=== PATIENT | male | born 1955 | race Two or more races ===

== ENCOUNTER 2024-11-15 14:33 | Emergency (ER) | payer BC, SELFPAY ==
--- NOTE | 2024-11-15 14:36 | EDNOTE_ITS ---
ED Alcohol RME/HPI General Chief Complaint: Alcohol Stated Complaint: DRUNK Time Seen by Provider: 11/15/24 14:36 Arrival date/time: 11/15/24 14:33 69 year old male present to emergency room via EMS for intoxication. pt is speaking in Congolese. no sign of head/neck trauma. SEVERITY: Symptoms are described as being severe with limitations on activities of daily living CONTEXT: The patient is unable to identify any inciting events. DURATION/TIMING: The symptoms started approximately 1 day ASSOCIATED SYMPTOMS: The patient is unable to identify any other associated symptoms. MODIFYING FACTORS: The patient is unable to identify any alleviating or aggravating symptoms. PERTINENT ROS: patient is intoxication without complication REVIEW OF SYSTEMS: See History of Present Illness - with the exception of those mentioned in the history of present illness, all other systems reviewed and reported as negative GENERAL: In general the patient is awake, interactive, in an emergency department gurney. HEAD/EYES/EARS/NOSE/THROAT: normo-cephalic, atraumatic, mucus membranes are moist, anicteric, palpebral conjunctiva is pink, trachea is midline. CARDIOVASCULAR: regular rate and regular rhythm, no murmurs, heart sounds are not distant, strong pulses in all four extremities that are equal and symmetric bilateral upper and lower extremities, normal capillary refill. CHEST/PULMONARY: normal chest rise and fall, good air movement, clear to auscultation bilaterally, normal inspiratory to expiratory ratios without evidence of respiratory distress. NECK: No midline/Paraspinal tenderness, no step off ROM/Strenght intact No Kernig and bruzinski sign. No trauma ABDOMEN: soft, not tender, no masses appreciated BACK: normal range of motion without pain. NEUROLOGICAL: cranio-facial features are symmetric, moves all four extremities equally without obvious limitations or weakness. EXTREMITY: no tenderness to palpation over the long bones or large joints of the bilateral upper and lower extremities, no joint swelling, no joint erythema, no signs of trauma, no unilateral leg swelling and no peripheral edema. SKIN: warm, dry, well-perfused, no jaundice, no rash, no telangiectasias or petechia. PSYCH: intoxication , slurring speach Related Data Allergies Allergy/AdvReac Type Severity Reaction Status Date / Time No Known Allergies Allergy Mild Uncoded 11/19/03 06:03 Course Course Course Narrative: Patient presented with acute alcohol intoxication. No evidence of traumatic injury or medical complication on medical screening exam. Patient observed in the ED for 3 hours after which patient was clinically sober. Patient discharged in the care of family . Information provided on alcohol abuse. Follow up with PCP as needed. Return to ER if alteration of mental status, nausea/vomiting, or other concerns Plan:?? Discharge from ED F/U with PCP PRN Decrease alcohol consumption, binge drinking behavior Return to emergency department urgently if new or worsening symptoms develop. Quality Measures none Orders Category Date Time Status IV [Insert IV] STAT Care 11/15/24 14:52 Active Alcohol, Blood Medical Stat Lab 11/15/24 16:00 Completed CBC Stat Lab 11/15/24 16:00 Completed CMP [Comprehensive Metabolic Panel] Stat Lab 11/15/24 16:00 Completed Drug Screen,Urine Stat Lab 11/15/24 15:35 Completed Lipase Stat Lab 11/15/24 16:00 Completed Folic Acid Inj Med 11/15/24 14:53 Discontinued 1 mg IVP X1 ONE Sodium Chloride 0.9% 1000 ml [Ns] 1,000 ml Med 11/15/24 14:53 Discontinued IV 999 mls/hr Thiamine [Vitamin B-1] Med 11/15/24 14:53 Discontinued 100 mg PO X1 ONE Vital Signs Vital signs: Vital Signs Temperature 98.1 F 11/15/24 14:44 Pulse Rate 85 11/15/24 14:44 Respiratory Rate 20 11/15/24 14:44 Blood Pressure 150/83 H 11/15/24 14:44 Pulse Oximetry (%) 98 11/15/24 14:44 Oxygen Delivery Method Room Air 11/15/24 14:44 Discharge Plan Plan Patient Disposition: HOME (Self Care) Health Concerns: Follow with PMD as directed Return to ED if sx worsen Problem List Clinical Impression: Alcoholic intoxication Patient/Caregiver Discharge Instructions Education Materials: ED Alcohol Intoxication Print Language: Congolese Stand Alone Forms: Karissa Award Info., Patient Portal Info Letter Alcohol Patient data External records reviewed:: [facility] previous records Clinical information provided by:: patient and EMS Social determinants that could affect healthcare access:: none Patient has the following chronic illnesses:: eoth How is presenting disease/condition affected by chronic disease/condition?: exacerbated by Evaluation data The following diagnostics were reviewed and interpreted by me:: lab results Lab and/or radiology exams considered but not ordered:: none Interpretation Summary: + eoth cbc/cmp wnl Medications / Prescriptions Medications or Prescriptions considered but not ordered:: none Medication administrations:: Medication Administration History Discontinued Medications Folic Acid (Folic Acid Inj 1 Mg/0.2 Ml) 1 mg IVP X1 ONE Stop: 11/15/24 14:54 Last Admin: 11/15/24 15:31 Dose: 1 mg Documented By: Sodium Chloride (Ns) 1,000 mls @ 999 mls/hr IV .Q1H1M ONE Stop: 11/15/24 15:53 Last Infusion: 11/15/24 17:03 Dose: Infused Documented By: Admin: 11/15/24 15:32 Dose: 999 mls/hr Documented By: Thiamine HCl (Thiamine 100 Mg Tablet) 100 mg PO X1 ONE Stop: 11/15/24 14:54 Last Admin: 11/15/24 15:31 Dose: 100 mg Documented By: n/a Consultations Consultation(s) initiated? (list below): No Diagnosis Most likely diagnosis given after review of the tests above:: alcohol intoxication Admission Indicated Admission indicated?: not indicated Admission Request Was there a request for admission?: No Disposition Plan Disposition Plan: Discharge Discharge Attestation Discharge Attestation: The patient and all family members were given an opportunity to ask questions and understood the discharge instructions. Discharge instructions specifically effects, indications for sooner follow up or return to the emergency department, and the expected course of current diagnosis. Patient condition: Stable
[2024-11-15 14:44] VITALS: BP 150/83; PULSE 85; RESP 20; TEMP 36.7; O2SAT 98
[2024-11-15 14:57] VITALS: PULSE 82; RESP 20; O2SAT 97; BMI 28.0
[2024-11-15] MEDS: FOLIC ACID INJ 1 MG/0.2 ML IVP (15:31)
[2024-11-15] MEDS: THIAMINE 100 MG TABLET PO (15:31)
[2024-11-15] MEDS: SODIUM CHLORIDE 0.9% 1000 ML 1,000 ML 999 ML IV (15:32)
[2024-11-15 16:04] LABS: Amphetamine/Methamp Scrn,U Negative (Negative); Barbiturate Screen,Urine Negative (Negative); Benzodiazepines Screen,Urine Negative (Negative); Benzoylecgonine Screen, Ur Negative (Negative); Fentanyl Screen,Urine Negative (Negative); Opiate Screen,Urine Negative (Negative); THC Screen,Urine Negative (Negative)
[2024-11-15 16:47] LABS: Basophils % (Auto) 0 % (0-2.5); Eosinophils # (Auto) 0.1 Thou/mm3 (0.0-0.5); Eosinophils % (Auto) 2 % (0-10); Hematocrit 33.5 % (41.0-53.0); Hemoglobin 11.9 g/dL (13.5-16.0); Immature Granulocytes % (Auto) 1 % (0-0); Immature Granulocytes Auto 0.07 Thou/mm3 (0.00-0.00); Lymphocytes # (Auto) 1.5 Thou/mm3 (1.0-4.8); Lymphocytes % (Auto) 30 % (10-50); Mean Corpuscular HGB Conc 35.5 g/dl (31.0-37.0); Mean Corpuscular Hemoglobin 32.1 pg (25.0-35.0); Mean Corpuscular Volume 90 fL (80-100); Monocytes # (Auto) 0.4 Thou/mm3 (0.0-0.8); Monocytes % (Auto) 8 % (0-12); Neutrophils # (Auto) 3.1 Thou/mm3 (1.8-7.7); Neutrophils % (Auto) 59 % (37-80); Nucleated Red Blood Cell % 0 /100 WBC (0); Platelet Count 247 Thou/mm3 (140-440); RDW Standard Deviation 41.6 fL (35.1-43.9); Red Blood Count 3.71 Miln/mm3 (4.50-5.90); White Blood Count 5.2 Thou/mm3 (3.8-10.6)
[2024-11-15 17:08] LABS: Alanine Aminotransferase 61 U/L (10-49); Albumin, Serum 3.9 gm/dL (3.4-4.8); Albumin/Globulin Ratio 1.3 (1.2-2.2); Alcohol, Blood Medical 275.2 mg/dL (0-10.0); Alkaline Phosphatase 85 U/L (46-116); Anion Gap 7 (7-16); Aspartate Amino Transferase 63 U/L (0-34); BUN/Creatinine Ratio 17 Ratio (12-20); Bilirubin,Total 0.3 mg/dL (0.3-1.2); Blood Urea Nitrogen 10 mg/dL (9-23); Calcium 7.9 mg/dL (8.3-10.6); Carbon Dioxide 26.7 mMol/L (20.0-31.0); Chloride 107 mMol/L (98-107); Creatinine (Component) 0.6 mg/dL (0.6-1.3); Estimated Creatinine Clearance 116.9 mL/min (>60); Globulin 3.1 gm/dL (2.3-3.5); Glucose 184 mg/dL (74-106); Lipase 88 U/L (12-53); Osmolality,Calculated 285 (275-295); Sodium 141 mMol/L (136-145); eGFR > 60 See Note
[2024-11-15 17:59] LABS: Potassium 3.8 mMol/L (3.4-5.1)
--- NOTE | 2024-11-15 18:03 | PC.NURSE ---
family contacted to olive picker patient is awake and talking, eating and drinking fluid
[2024-11-15 20:18] VITALS: BP 142/63; PULSE 78; RESP 18; TEMP 37.1; O2SAT 99
== END 2024-11-15 20:18 | disposition home or self-care (01) ==
LOC: SERX 20:43
PROVIDERS: Physician Assistant; Emergency Provider Emergency Medicine
DX: F10.120 Alcohol abuse with intoxication, uncomplicated (principal)
CPT/HCPCS: 36415; 80053; 80307; 80320; 83690; 85025; 96361; 96374; 99284; J3490; J7030; A9270; G0480

== ENCOUNTER 2025-01-30 15:32 | Emergency (ER) | payer BC, SELFPAY ==
[2025-01-30 15:37] VITALS: BMI 29.0
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
[2025-01-30 15:41] VITALS: BP 126/78; PULSE 97; RESP 14; TEMP 37; O2SAT 99
== END 2025-01-30 15:51 ==
LOC: SERX 16:13
PROVIDERS: Emergency Provider Family Medicine; PCP Family Medicine
DX: Z02.89 Encounter for other administrative examinations (principal); Z04.1 Encounter for examination and observation following transport accident
CPT/HCPCS: 99281

== ENCOUNTER 2025-04-21 08:20 | Emergency (ER) | payer MEDICARE, MEDICAID, SELFPAY ==
[2025-04-21] VITALS (9 sets, daily range): BP systolic 100–158; BP diastolic 55–88; PULSE 72–82; RESP 16–20; TEMP 36.6–37; O2SAT 92–98; BMI 30.7; BMI 26.6
--- NOTE | 2025-04-21 08:45 | XR_ITS ---
Examination: CT brain head without contrast. 2-D sagittal coronal reconstructions Date and time of exam:April 21, 2025, 0905 hours INDICATIONS: Head pain today post head injury CTDI: vol (mGy):56 DLP: (mGycm):1237 Technique: Multiple CT axial sections of the brain have been obtained, 5 mm slice thickness. Contrast has not been administered. 2-D sagittal, coronal reconstructions have been obtained Low dose protocols were performed. One or more of the following dose reduction techniques were used; automated exposure control, adjustment of the mA and/or KV according to patient size, use of iterative reconstruction technique. Findings: No significant ventricular enlargement. Intra-axial or extra-axial hemorrhage density is not seen. No mass effect or midline shift Basal cisterns are not remarkable. Fourth ventricle is midline. Cranial vault intact. Impression: Negative for acute hemorrhage, mass effect or midline shift
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
--- NOTE | 2025-04-21 09:23 | PC.CC ---
Patient is pending medical clearance and mental health evaluation upon being medically cleared. It was reported that patient made multiple suicidal statements and is ethol intoxicated.
[2025-04-21 09:28] LABS: Lactate (Lactic Acid) 1.9 mMol/L (0.4-2.0)
[2025-04-21] MEDS: FOLIC ACID 1 MG TABLET PO (09:28)
[2025-04-21] MEDS: MULTIVITAMIN 15 ML UDC PO (09:28)
[2025-04-21] MEDS: RINGERS LACTATED 1000 ML 1,000 ML 999 ML IV (09:29)
[2025-04-21] MEDS: THIAMINE INJ 250 MG in SODIUM CHLORIDE 0.9% 100 ML 205 MG IV (09:29)
[2025-04-21 09:33] LABS: Basophils # (Auto) 0.0 Thou/mm3 (0.0-0.2); Basophils % (Auto) 1 % (0-2.5); Eosinophils # (Auto) 0.2 Thou/mm3 (0.0-0.5); Eosinophils % (Auto) 4 % (0-10); Hematocrit 38.7 % (41.0-53.0); Hemoglobin 13.4 g/dL (13.5-16.0); Immature Granulocytes Auto 0.06 Thou/mm3 (0.00-0.00); Lymphocytes # (Auto) 2.2 Thou/mm3 (1.0-4.8); Lymphocytes % (Auto) 42 % (10-50); Mean Corpuscular HGB Conc 34.6 g/dl (31.0-37.0); Mean Corpuscular Hemoglobin 32.4 pg (25.0-35.0); Mean Corpuscular Volume 94 fL (80-100); Monocytes # (Auto) 0.3 Thou/mm3 (0.0-0.8); Monocytes % (Auto) 6 % (0-12); Neutrophils # (Auto) 2.4 Thou/mm3 (1.8-7.7); Neutrophils % (Auto) 46 % (37-80); Nucleated Red Blood Cell # 0.00 Thou/mm3 (0.00-0.00); Nucleated Red Blood Cell % 0 /100 WBC (0); Platelet Count 302 Thou/mm3 (140-440); RDW Standard Deviation 44.2 fL (35.1-43.9); Red Blood Count 4.14 Miln/mm3 (4.50-5.90); White Blood Count 5.2 Thou/mm3 (3.8-10.6)
[2025-04-21 09:56] LABS: Alanine Aminotransferase 56 U/L (10-49); Albumin, Serum 4.4 gm/dL (3.4-4.8); Albumin/Globulin Ratio 1.5 (1.2-2.2); Alkaline Phosphatase 103 U/L (46-116); Anion Gap 12 (7-16); Aspartate Amino Transferase 48 U/L (0-34); BUN/Creatinine Ratio 14 Ratio (12-20); Bilirubin,Total 0.3 mg/dL (0.3-1.2); Blood Urea Nitrogen 11 mg/dL (9-23); Calcium 9.0 mg/dL (8.3-10.6); Calcium (Corrected) 9.0 mg/dL (8.5-10.1); Carbon Dioxide 25.3 mMol/L (20.0-31.0); Chloride 107 mMol/L (98-107); Creatine Kinase 45 U/L (34-171); Creatinine (Component) 0.8 mg/dL (0.6-1.3); Estimated Creatinine Clearance 80.3 mL/min (>60); Globulin 3.0 gm/dL (2.3-3.5); Glucose 118 mg/dL (74-106); Lipase 219 U/L (12-53); Osmolality,Calculated 287 (275-295); Potassium 4.2 mMol/L (3.4-5.1); Sodium 144 mMol/L (136-145); Total Protein 7.4 gm/dL (5.7-8.2); eGFR > 60 See Note
[2025-04-21 10:51] LABS: Collection Type, Urine Clean Catch; Squamous Epithelial Cell,Urine 0 /hpf (0-5); WBC,Urine 0 /hpf (0-5)
[2025-04-21 11:00] LABS: Amphetamine/Methamp Scrn,U Negative (Negative); Barbiturate Screen,Urine Negative (Negative); Benzodiazepines Screen,Urine Negative (Negative); Benzoylecgonine Screen, Ur Negative (Negative); Fentanyl Screen,Urine Negative (Negative); Opiate Screen,Urine Negative (Negative); THC Screen,Urine Negative (Negative)
[2025-04-21 11:14] LABS: Bilirubin,Urine Negative (Negative); Blood,Urine Negative (Negative); Clarity,Urine Clear (Clear/Hazy); Color,Urine Colorless (Lt Yel-Yel); Glucose, Urine Negative (Negative); Ketones,Urine Negative (Negative); Leukocyte Esterase,Urine Negative (Negative); Nitrite,Urine Negative (Negative); PH,Urine 6.5 (5.0-7.0); Protein,Urine Negative (Neg - Trace); RBC,Urine 1 /hpf (0-3); Specific Gravity,Urine 1.009 (1.001-1.035); Urobilinogen,Urine Negative mg/dL (0.0-1.0)
--- NOTE | 2025-04-21 11:40 | PC.NURSE ---
PATIENT SLEEPING WITH NO COMPLAINT OF PAIN AT THIS TIME. WILL CONTINUE TO MONITOR
--- NOTE | 2025-04-21 15:33 | PC.CC ---
Pt is under home arrest with ankle monitor Patient is a 69 year-old male who presents to the hospital for Anxiety due to calling EMS after finding Pt drunk and passed out. AMFT Sandra made [id number] contact with patient to complete assessment. AMFT introduced self, role, and reason for assessment. disclosed limits of confidentiality as well. Patient appeared alert and oriented to self, place, and situation. At bedside was patient?s mother, Liana Tanner . Patient made appropriate eye contact with this health science writer. Patients mood appeared to be euthymic and remained engaged in assessment, patient had good insight and judgement. No signs of delusions, paranoid or V/h. Patient reports yesterday she had a verbal altercation with her mother and was upset so she graphited her closet and wrote ?suicide band.? Patient reports this is a music band and mother confirmed that she looked it up after the fact and confirmed the information. The mother became upset about the graphite and patient went for a walk with her grandmother, Shivani Olson and when they came back the grandmother fainted which caused the patient to go into a panic and have a panic attack. Patient?s mother reports that is when she called the police. Patient disclosed she has had suicidal ideations with the last time being last week but no plan or intention. Patient reports she does have old self-injurious cuts on her right forearm that she showed this health science writer. These cuts did not appear to be new and patient reports they were old and did it to feel something as she does feel depressed at times. Patient reports she only did this once. At the time of encounter patient is not expressing suicidal and homicidal ideations, visual and auditory hallucinations. Per patient and mother, Liana alexandra has never been placed on a 5585-hold and is not connected and has never been connected to outpatient mental health services. Patient and mother report that patient has been expressing symptoms of depression and has an appointment scheduled with a Psychiatrist, Dr. Muñoz on Tuesday, April 22, [address] [facility] in [place] at 11:00am. ASW inquired what the patient does when she has suicidal ideation or frustration. Patient reports she enjoys drawing, goes for walks with her maternal grandmother, and listening to music. ASW explored with patient and mother is they were willing to safety plan and both reported yes. Patient?s toxicology report was positive for marijuana. Patient had a [facility] screening completed at the time of arrival at the hospital last night by LESLY Wright, the outcome was High Risk. Upon clinical consultation with SILK WEAVER, Jocelyn Zamora patient does not meet criteria for 5150-Hold. Safety plan to be established with mother and patient. ASW, Clare established a safety plan with patient and mother, Liana. Safety plan is that the mother will provide extra supervision to the minor for the next 72 hours. If mother and patient being to feel they need a break the patient will go to maternal grandmother Shivani Olson. Mother is to ensure all medications and sharps are locked and secured not only at home but at grandmother?s home as well. There are no firearms in the home. Mother to ensure the patient attends her outpatient mental health appointment on Friday, April 22, 2025. Mother was advised to bring patient back to the hospital should patient have suicidal ideations or worsening symptoms. ASW provided patient with community resource guide that included crisis and local authority numbers. ASW provided update of discharge plan with safety plan to Dr. Conde, integration project manager Lanise, and bedside LESLY Cordero.
--- NOTE | 2025-04-21 15:56 | PC.CC ---
Patient is a 69-year-old male who presents to the hospital for Anxiety due to calling EMS after finding Pt drunk and passed out. NELY Flores made [id number] contact with patient to complete assessment. AMFT introduced self, role, and reason for assessment. AMFT disclosed limits of confidentiality as well. Patient appeared alert and oriented to self, place, and situation. Patient made appropriate eye contact with this property underwriter. Patients mood appeared to be euthymic and remained engaged in assessment, patient had good insight and judgement. No signs of delusions, paranoid or V/h. Patient reports he has had difficulties with due to Pt being under home arrest with ankle monitor and not being able to leave home. Pt reports depression but denies plan/intent to end life. Patient denies self-injurious behaviors. At the time of encounter patient is not expressing suicidal and homicidal ideations, visual and auditory hallucinations. Per patient he has never been placed on a 5150-hold and is connected per court mandate to outpatient mental health services through [facility]. Patient report symptoms of depression and has next appointment scheduled with [facility] scheduled for next FridayApril 26. AMFT inquired what the patient does when she has suicidal ideation or frustration. Patient reports enjoys going to [employer] and [employer]. AMFT explored with patient and is they were willing to safety plan and both reported yes. Patient?s toxicology report was negative for all drugs. Patient had a [place] screening completed at the time of arrival at the hospital outcome was Low Risk. Upon clinical consultation with [facility], Jocelyn Zamoar patient does not meet criteria for 5150-Hold. Safety plan to be established with and patient. NELY Flores established a safety plan with patient and , Aline. Safety plan is that the will provide extra supervision to the minor for the next 72 hours. If and patient being to feel they need a break will go to children?s house. is to ensure all medications and sharps are locked and secured. There are no firearms in the home. to ensure the patient attends his outpatient mental health appointment on Saturday, April 26, 2025. was advised to bring patient back to the hospital should patient have suicidal ideations or worsening symptoms. [facility] provided patient with community resource guide that included crisis and local authority numbers. [facility] provided update of discharge plan with safety plan to Dr. Conde, sponge fisherman Charlie, and bedside RN Gil.
== END 2025-04-21 16:06 | disposition home or self-care (01) ==
PROVIDERS: Emergency Provider Student in an Organized Health Care Education/Training Program
DX: F10.129 Alcohol abuse with intoxication, unspecified (principal); R45.851 Suicidal ideations; F41.9 Anxiety disorder, unspecified
CPT/HCPCS: 36415; 70450; 80053; 80307; 81001; 82550; 83605; 83690; 85025; 96127; 96361; 96365; 96372; 99284; J3411; J7050; J7120; A9270

== ENCOUNTER 2025-07-14 16:23 | Emergency (ER) | payer MEDICARE, MEDICAID, SELFPAY ==
[2025-07-14 17:03] VITALS: BP 151/82; PULSE 75; RESP 17; TEMP 36.6; O2SAT 99; BMI 29.5
--- NOTE | 2025-07-14 17:14 | XR_ITS ---
Examination: CT brain head without contrast. 2-D sagittal coronal reconstructions Date and time of exam:July 14, 2025, 1724 hrs. Indications: Headache dizziness beginning 4 days ago Comparison: April 21, 2025 CTDI: vol (mGy):54.5 DLP: (mGycm):1172 Technique: Multiple CT axial sections of the brain have been obtained, 5 mm slice thickness. Contrast has not been administered. 2-D sagittal, coronal reconstructions have been obtained Low dose protocols were performed. One or more of the following dose reduction techniques were used; automated exposure control, adjustment of the mA and/or KV according to patient size, use of iterative reconstruction technique. Findings: No significant ventricular enlargement. Mild bilateral chronic subdural hygromas, slightly more prominent compared to April 21, 2025, measuring up to 6 mm in thickness at the level of the right lateral ventricle and 5 mm in thickness at the level of the left lateral ventricle Intra-axial or extra-axial hemorrhage density is not seen. No mass effect or midline shift Basal cisterns are not remarkable. Fourth ventricle is midline. Cranial vault intact. Impression: Negative for acute hemorrhage, mass effect or midline shift Small bilateral chronic subdural hygromas as above, recommend short-term follow-up CT brain scan as clinically warranted to document stability of these chronic subdural hygromas
--- NOTE | 2025-07-14 17:15 | PD.EDRME ---
Rapid Medical Screening Exam RME Arrival date/time: 07/14/25 16:23 69-year-old male with history of alcohol abuse presents to the emergency department today for complaint of headache Chief Complaint: Headache Vital signs: Vital Signs Temperature 97.9 F 07/14/25 17:03 Pulse Rate 75 07/14/25 17:03 Respiratory Rate 17 07/14/25 17:03 Blood Pressure 151/82 H 07/14/25 17:03 Pulse Oximetry (%) 99 07/14/25 17:03 Oxygen Delivery Method Room Air 07/14/25 17:03
[2025-07-14 17:34] LABS: Basophils # (Auto) 0.0 Thou/mm3 (0.0-0.2); Basophils % (Auto) 0 % (0-2.5); Eosinophils # (Auto) 0.1 Thou/mm3 (0.0-0.5); Eosinophils % (Auto) 1 % (0-10); Hematocrit 42.0 % (41.0-53.0); Hemoglobin 14.3 g/dL (13.5-16.0); Immature Granulocytes Auto 0.03 Thou/mm3 (0.00-0.00); Lymphocytes # (Auto) 1.3 Thou/mm3 (1.0-4.8); Lymphocytes % (Auto) 19 % (10-50); Mean Corpuscular HGB Conc 34.0 g/dl (31.0-37.0); Mean Corpuscular Hemoglobin 31.4 pg (25.0-35.0); Mean Corpuscular Volume 92 fL (80-100); Monocytes # (Auto) 0.5 Thou/mm3 (0.0-0.8); Monocytes % (Auto) 8 % (0-12); Neutrophils # (Auto) 4.7 Thou/mm3 (1.8-7.7); Neutrophils % (Auto) 71 % (37-80); Nucleated Red Blood Cell # 0.00 Thou/mm3 (0.00-0.00); Nucleated Red Blood Cell % 0 /100 WBC (0); Platelet Count 339 Thou/mm3 (140-440); RDW Standard Deviation 39.7 fL (35.1-43.9); Red Blood Count 4.56 Miln/mm3 (4.50-5.90); White Blood Count 6.7 Thou/mm3 (3.8-10.6)
[2025-07-14 17:54] LABS: INR 1.0 (0.9-1.3); Partial Thromboplastin Time 27.6 Seconds (22.0-36.0); Prothrombin Time 10.3 Seconds (9.0-12.2)
--- NOTE | 2025-07-14 18:08 | EDNOTE_ITS ---
ED General RME/HPI General Chief complaint: Headache Stated complaint: HEADACHE AND NAUSEA Time Seen by Provider: 07/14/25 18:08 Arrival date/time: 07/14/25 16:23 RME / HPI RME / HPI narrative: 07/14/25 16:23 69-year-old male with history of alcohol abuse presents to the emergency department today for complaint of headache. Patient reports his headache is 8 out of 10 out of pain, located in the central forehead, with no associated bl urry vision, onset today, has never had the symptoms before. Denies any vomiting or nausea at this time. Denies any chest pain. Denies history of stroke or history of migraines. Denies any recent travel. Has been taking Tylenol Celebrex to relieve his symptoms. No other complaints at this time. Related Data Allergies Allergy/AdvReac Type Severity Reaction Status Date / Time No Known Allergies Allergy Unknown Uncoded 07/14/25 16:24 Review of Systems Review of Systems Narrative Review of Systems: Constitutional: No fever, chills, fatigue, weakness, weight loss HEENT: No eye pain, vision loss, ear pain, hearing loss, dysphagia, Cardiovascular: No chest pain, palpitations, edema, pain with walking Respiratory: No cough, shortness of breath, wheezing GI: No NVD, abdominal pain, constipation, blood in stool, loss of appetite, h eartburn Extremities: No presence of pitting edema MSK: No back pain, joint pain, joint swelling Neuro: No dizziness, numbness, weakness, headaches, seizures, tremors, + headache Psych: No anxiety, depression ED Exam Narrative Physical exam: General: AAOx3, NAD, HEENT: Moist mucous membranes, conjunctiva clear, EOMI, PERRLA, Cardiovascular: S1, S2, radial pulses +2 bilat, RRR Pulmonary: CTAB bilat no cough, no wheezing GI: No tenderness to light or deep palpitation, no guarding, rigidity, rebound tenderness or distension Extremities: No presence of trace or pitting edema in lower extremities bilaterally, dorsalis pedis pulses +2 bilaterally Neuro: AAOx3, no focal motor or sensory deficits in the UE or LE bilat Psych: Good judgement, thought and behavior Course Quality Measures none Orders Category Date Time Status CT Screening NOW Care 07/14/25 20:[address] Screening NOW Care 07/14/25 20:44 Active Insert IV NOW Care 07/14/25 20:[address] angio head Stat Exams 07/14/25 20:[address] head/brain wo con Stat Exams 07/14/25 17:14 Completed Alcohol, Blood Medical Stat Lab 07/14/25 17:23 Completed CBC Stat Lab 07/14/25 17:23 Completed Comprehensive Metabolic Panel Stat Lab 07/14/25 17:23 Completed Partial Thromboplastin Time Stat Lab 07/14/25 17:23 Completed Prothrombin Time with INR Stat Lab 07/14/25 17:23 Completed DiphenhydrAMINE INJ [Benadryl Inj] Med 07/14/25 20:44 Discontinued 25 mg IVP X1 ONE Metoclopramide Inj [Reglan Inj] Med 07/14/25 20:44 Discontinued 10 mg IVP X1 ONE Vital Signs Vital signs: Vital Signs Temperature 97.9 F 07/14/25 17:03 Pulse Rate 75 07/14/25 17:03 Respiratory Rate 17 07/14/25 17:03 Blood Pressure 151/82 H 07/14/25 17:03 Pulse Oximetry (%) 99 07/14/25 17:03 Oxygen Delivery Method Room Air 07/14/25 17:03 Discharge Plan Plan Patient Disposition: HOME (Self Care) Patient condition on transfer: Stable Prescriptions/Referrals Referrals: Shivani Gross MD [Primary Care Provider] - In 1 week Problem List Clinical Impression: Migraine Patient/Caregiver Discharge Instructions Discharge Activity: activity as tolerated Education Materials: Headache Migraine Triggers Prevent Print Language: Italian Stand Alone Forms: Karissa Award Info., Patient Portal Info Letter MD Attestation Attestation I, Dr. Durand, have reviewed the history, exam, and assessment of the patient. I have evaluated the patient independently and agree with the plan of care documented by the resident Dr. Talavera. All diagnostic studies were reviewed and discussed. I confirm the diagnosis as documented by the resident. I was present during the Medical Decision Making for this patient. The patient?s plan of care was created between myself and the resident and consistent with our discussion of the patient?s case. MDM Narrative MDM hospital course (for use when minimal MDM required): 2030: H concern foread CT wnl, aneurysm will order CT head angio. Will also give Benadryl and Reglan for migraine cocktail. 2350: Head CT angio reviewed, does not show any large vessel occlusion or aneurysm at this time patient's symptoms are improved with Benadryl and Reglan, patient symptoms likely related to complex migraine. Patient is appropriate for discharge at this time, recommended to follow-up with outpatient. Patient will have to hold metformin for couple of days in addition to avoiding NSAIDs as patient got IV contrast. Medication Administration(s) Medication Administration History Discontinued Medications Diphenhydramine HCl (Diphenhydramine Inj 50 Mg/Ml Vial) 25 mg IVP X1 ONE Stop: 07/14/25 20:45 Last Admin: 07/14/25 20:59 Dose: 25 mg Documented By: DANYA Metoclopramide HCl (Metoclopramide Inj 5 Mg/Ml Vial 2 Ml) 10 mg IVP X1 ONE; Protocol Stop: 07/14/25 20:45 Last Admin: 07/14/25 20:57 Dose: 10 mg Documented By: DANYA Diagnosis Diagnoses ruled out and/or further discussions: Complex migraine, CVA, aneurysm Complex migraine leading diagnosis at this point
[2025-07-14 18:24] LABS: Alanine Aminotransferase 58 U/L (10-49); Albumin, Serum 4.7 gm/dL (3.4-4.8); Albumin/Globulin Ratio 1.4 (1.2-2.2); Alcohol, Blood Medical < 3.0 mg/dL (0-10.0); Alkaline Phosphatase 98 U/L (46-116); Anion Gap 8 (7-16); Aspartate Amino Transferase 51 U/L (0-34); BUN/Creatinine Ratio 14 Ratio (12-20); Bilirubin,Total 0.6 mg/dL (0.3-1.2); Blood Urea Nitrogen 11 mg/dL (9-23); Calcium 9.8 mg/dL (8.3-10.6); Calcium (Corrected) 9.8 mg/dL (8.5-10.1); Carbon Dioxide 27.4 mMol/L (20.0-31.0); Chloride 100 mMol/L (98-107); Creatinine (Component) 0.8 mg/dL (0.6-1.3); Estimated Creatinine Clearance 84.0 mL/min (>60); Globulin 3.3 gm/dL (2.3-3.5); Glucose 151 mg/dL (74-106); Osmolality,Calculated 272 (275-295); Potassium 4.6 mMol/L (3.4-5.1); Sodium 135 mMol/L (136-145); Total Protein 8.0 gm/dL (5.7-8.2); eGFR > 60 See Note
[2025-07-14 19:26] VITALS: BP 176/86; PULSE 65; RESP 18; TEMP 36.6; O2SAT 100
--- NOTE | 2025-07-14 20:44 | XR_ITS ---
Examination: CTA brain head with intravenous contrast CTA carotid with intravenous contrast 2-D sagittal, coronal reconstructions. 3-D reconstructions. Exam date and time: July 14, 2025, 2130 hrs. Indications: Headaches nausea today CTDI: vol (mGy) 41.23 DLP: (mGycm) 438 Technique: Multiple CTA axial brain, head carotid images post intravenous contrast injection 75 cc, Isovue-[id number]. 2-D sagittal, coronal reconstructions. 3-D reconstructions, 3-D post processing including vascular maximum intensity projection images. Low dose protocols were performed. One or more of the following dose reduction techniques were used; automated exposure control, adjustment of the mA and/or KV according to patient size, use of iterative reconstruction technique. Findings: The images are predominantly late venous phase which limits the assessment of the arterial phase Petrous juxtasellar portions internal carotid arteries intact Codominant vertebral arteries intact Intracranial vertebral arteries basilar artery posterior cerebral branches fill with no occlusions Juxtasellar supraclinoid portions internal carotid arteries fill M1 segments middle cerebral arteries middle cerebral artery trifurcation vessels anterior cerebral vessels fill with no large vessel occlusions dissection or aneurysmal dilatation Impression: Limited study No large vessel arterial occlusions Consider brain MRI MRA follow-up pre and postcontrast
[2025-07-14] MEDS: METOCLOPRAMIDE INJ 5 MG/ML VIAL 2 ML 10 MG IVP (20:57)
[2025-07-14 22:40] VITALS: BP 108/59; PULSE 65; RESP 19; TEMP 36.5; O2SAT 98
[2025-07-15 00:08] VITALS: PULSE 70; RESP 16; O2SAT 143
== END 2025-07-15 00:09 | disposition home or self-care (01) ==
PROVIDERS: Nurse Practitioner Primary Care; PCP Obstetrics & Gynecology
DX: G43.909 Migraine, unspecified, not intractable, without status migrainosus (principal)
CPT/HCPCS: 36415; 70450; 70496; 80053; 80320; 85025; 85610; 85730; 96374; 96375; 99284; A4649; J1200; J2765; Q9967; G0480

== ENCOUNTER 2025-08-25 14:09 | Emergency (ER) | payer MEDICARE, MEDICAID, SELFPAY ==
[2025-08-25] VITALS (8 sets, daily range): BP systolic 112–147; BP diastolic 67–87; PULSE 85–110; RESP 16–21; TEMP 36.9–37.1; O2SAT 93–98; BMI 27.4
--- NOTE | 2025-08-25 14:33 | XR_ITS ---
EXAMINATION: AP chest single view TECHNIQUE: AP portable upright chest single view Date and time: August 25, 2025, 1514 hours, comparison December 10, 2022 INDICATIONS: Chest pain coughing shortness of breath today. FINDINGS: Early pneumonia right base obscuring detail right hemidiaphragm Mild prominence left ventricle Moderate osteopenia IMPRESSION: Early pneumonia right base
--- NOTE | 2025-08-25 14:33 | EKG_ITS ---
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: : 1955 Requested By: Silas Bray Order Number: [id number] Reading MD: Silas Bray Measurements Intervals [place] Rate: 94 P: 30 [place]: 129 QRS: -50 QRSD: 151 T: 21 QT: 365 QTc: 458 Interpretive Statements SINUS RHYTHM RIGHT BUNDLE BRANCH BLOCK [120+ ms QRS DURATION, UPRIGHT V1, 40+ ms S IN I/aVL/V4/V5/V6] LEFT ANTERIOR FASCICULAR BLOCK [QRS AXIS <= -45, QR IN I, RS IN II] MODERATE VOLTAGE CRITERIA FOR LVH, CONSIDER NORMAL VARIANT [MEETS CRITERIA IN ONE OF: R(aVL), S(V1), R(V5), R(V5/V6)+S(V1)] Compared to ECG 12/10/2022 19:30:53 Right bundle-branch block now present Left anterior fascicular block now present /store/S0/[id number].pdf
[2025-08-25] MEDS: THIAMINE 100 MG TABLET PO (14:45)
[2025-08-25] MEDS: FOLIC ACID 1 MG TABLET PO (14:45)
[2025-08-25] MEDS: SODIUM CHLORIDE 0.9% 1000 ML 1,000 ML 999 ML IV ×2 (14:45→18:10)
[2025-08-25 14:56] LABS: Basophils # (Auto) 0.0 Thou/mm3 (0.0-0.2); Basophils % (Auto) 0 % (0-2.5); Eosinophils # (Auto) 0.2 Thou/mm3 (0.0-0.5); Eosinophils % (Auto) 3 % (0-10); Hematocrit 39.8 % (41.0-53.0); Hemoglobin 14.0 g/dL (13.5-16.0); Immature Granulocytes Auto 0.05 Thou/mm3 (0.00-0.00); Lymphocytes # (Auto) 2.4 Thou/mm3 (1.0-4.8); Lymphocytes % (Auto) 32 % (10-50); Mean Corpuscular HGB Conc 35.2 g/dl (31.0-37.0); Mean Corpuscular Hemoglobin 31.1 pg (25.0-35.0); Mean Corpuscular Volume 88 fL (80-100); Monocytes # (Auto) 0.5 Thou/mm3 (0.0-0.8); Monocytes % (Auto) 7 % (0-12); Neutrophils # (Auto) 4.3 Thou/mm3 (1.8-7.7); Neutrophils % (Auto) 58 % (37-80); Nucleated Red Blood Cell # 0.00 Thou/mm3 (0.00-0.00); Nucleated Red Blood Cell % 0 /100 WBC (0); Platelet Count 287 Thou/mm3 (140-440); RDW Standard Deviation 39.2 fL (35.1-43.9); Red Blood Count 4.50 Miln/mm3 (4.50-5.90); White Blood Count 7.5 Thou/mm3 (3.8-10.6)
[2025-08-25 15:04] LABS: Collection Type, Urine Clean Catch; Squamous Epithelial Cell,Urine 0 /hpf (0-5)
[2025-08-25 15:11] LABS: Bacteria,Urine Rare; Bilirubin,Urine Negative (Negative); Blood,Urine Negative (Negative); Clarity,Urine Clear (Clear/Hazy); Color,Urine Lt-Yellow (Lt Yel-Yel); Glucose, Urine 3+ (Negative); Hyaline Casts,Urine < 1 /hpf (0-1); Ketones,Urine 1+ (Negative); Leukocyte Esterase,Urine Negative (Negative); Nitrite,Urine Negative (Negative); PH,Urine 6.0 (5.0-7.0); Protein,Urine Negative (Neg - Trace); RBC,Urine 3 /hpf (0-3); Specific Gravity,Urine 1.014 (1.001-1.035); Urobilinogen,Urine Negative mg/dL (0.0-1.0); WBC,Urine < 1 /hpf (0-5)
[2025-08-25 15:11] LABS: INR 1.0 (0.9-1.3); Partial Thromboplastin Time 27.1 Seconds (22.0-36.0); Prothrombin Time 10.2 Seconds (9.0-12.2)
--- NOTE | 2025-08-25 15:11 | EDNOTE_ITS ---
ED Alcohol RME/HPI General Chief Complaint: General Adult/Misc Complain Stated Complaint: INTOXICATED Time Seen by Provider: 08/25/25 14:30 Arrival date/time: 08/25/25 14:09 Limitations: no limitations RME / HPI RME / HPI narrative: 69 year old male presents to the ED BIBA for alcohol intoxication. Per medics, patient was found sitting on the sidewalk. State they noticed an abrasion to the bridge of his nose though patient denied falling or injury. While in the ED, patient complains of feeling very sad and lonely. No other complaints reported. Related Data Allergies Allergy/AdvReac Type Severity Reaction Status Date / Time No Known Allergies Allergy Unverified 08/25/25 14:36 Review of Systems Review of Systems Systems Reviewed: All systems reviewed, normal except as documented Past Medical History Past Medical History NEUROLOGIC: Negative Neurological Disorders CARDIAC: Positive Hypertension RESPIRATORY: Negative Chronic Obstructive Pulmonary Disease (COPD) or Asthma GENITOURINARY: Positive Prostate Cancer ENDOCRINE: Positive Diabetes Mellitus Type 2 HEMATOLOGIC: Negative Sickle Cell Disease OTHER HISTORY: Positive Cancer and Prostate Cancer Surgical History SURGICAL: Negative Endocrine Surgery, Ear Surgery, Abdominal Surgery, Mastectomy or Vasectomy Social History SMOKING STATUS: Current some day smoker ED Exam General Limitations: Present no limitations General appearance: Present alert and appears intoxicated (and smells of alcohol ) Head Head exam: Present normocephalic and other (superficial laceration to the bridge of nose ) Eye Eye exam: Present normal appearance, PERRL and EOMI ENT ENT exam: Present normal exam, normal oropharynx and mucous membranes moist Neck Neck exam: Present normal inspection, full ROM and trachea midline Chest Chest inspection: Present normal inspection and symmetric chest wall rise Respiratory Respiratory exam: Present normal lung sounds bilaterally Cardiovascular Cardiovascular exam: Present regular rate, normal rhythm and normal heart sounds Abdominal Exam Abdominal exam: Present soft and normal bowel sounds Extremities Exam Extremities exam: Present full ROM and other (skin tear to the right hand ) Back Exam Back exam: Present normal inspection and full ROM Neurological Exam Neurological exam: Present alert, oriented X3 and CN II-XII intact Psychiatric Psychiatric exam: Present normal affect and normal mood Skin Skin exam: Present warm, dry, intact and normal color Course Quality Measures none Orders Category Date Time Status Rod Greaser NOW Care 08/25/25 14:33 Completed Continuous Pulse Oximetry NOW Care 08/25/25 14:33 Completed EKG (ED ONLY) *Do not use* NOW Care 08/25/25 14:33 Completed Insert IV NOW Care 08/25/25 14:33 Completed Wound Care [Wound Care] NOW Care 08/25/25 18:34 Completed EKG (ED Only) Stat Exams 08/25/25 14:33 Draft XR chest 1V portable Stat Exams 08/25/25 14:33 Completed Alcohol, Blood Medical Stat Lab 08/25/25 14:38 Completed CBC Stat Lab 08/25/25 14:38 Completed Comprehensive Metabolic Panel Stat Lab 08/25/25 14:38 Completed Partial Thromboplastin Time Stat Lab 08/25/25 14:38 Completed Prothrombin Time with INR Stat Lab 08/25/25 14:38 Completed Troponin I Stat Lab 08/25/25 14:38 Completed Urinalysis Stat Lab 08/25/25 14:59 Completed Bacitracin Oint pkt Med 08/25/25 18:33 Discontinued 1 gm TOP X1 ONE Folic Acid Med 08/25/25 14:32 Discontinued 1 mg PO X1 ONE LORazepam [Ativan] Med 08/25/25 14:35 Discontinued 1 mg PO X1 ONE Sodium Chloride 0.9% 1000 ml [Ns] 1,000 ml Med 08/25/25 14:32 Discontinued IV 999 mls/hr Sodium Chloride 0.9% 1000 ml [Ns] 1,000 ml Med 08/25/25 17:57 Discontinued IV 999 mls/hr TET,DIP/PERT AC (Adult)-Tdap [Boostrix Adult (Tdap) Med 08/25/25 18:33 Discontinued Vacc] 0.5 ml IMI .ONCE ONE Thiamine [Vitamin B-1] Med 08/25/25 14:32 Discontinued 100 mg PO X1 ONE Oxygen Delivery NOW RT 08/25/25 14:33 Completed Vital Signs Vital signs: Vital Signs Temperature 98.5 F 08/25/25 14:10 Pulse Rate 97 08/25/25 14:10 Respiratory Rate 18 08/25/25 14:10 Blood Pressure 137/77 H 08/25/25 14:10 Pulse Oximetry (%) 96 08/25/25 14:10 Oxygen Delivery Method Room Air 08/25/25 14:10 Pulse ox is 96% on room air which is adequate. Discharge Plan Plan Patient Disposition: HOME (Self Care) Prescriptions/Referrals Referrals: Carlos Michaud MD [Primary Care Provider, Family Practice] - In 1 week Problem List Clinical Impression: Alcohol intoxication, Abrasion of right thumb Patient/Caregiver Discharge Instructions Discharge Activity: activity as tolerated Education Materials: ED Abrasions, ED Alcohol Intoxication Additional Instructions: Discharge Instructions from Dr. Richard printed for you: 1. After evaluation, your diagnoses include alcohol intoxication and right thumb skin abrasion. 2. To avoid serious illnesses and injuries (some even fatal), avoid alcohol in the future. 3. Wound care of right thumb skin abrasion as instructed in the attached handout. 4. See a private doctor on 08/26/2025 for recheck. Ask for help to quit alcohol. Ask to review all test results and official radiology reports, to make sure you receive all necessary follow-ups and monitoring. 5. Seek immediate medical care with fever, spreading redness from the right thumb wound, or with any concerns. Instrucciones de denise del Dr. Richard impresas para usted: 1. Despu?s de la evaluaci?n, raul diagn?sticos incluyen intoxicaci?n por alcohol y abrasi?n de la piel del pulgar derecho. 2. Para evitar enfermedades y lesiones graves (algunas incluso mortales), evite el alcohol en el futuro. 3. Cuidado de la herida por abrasi?n de la piel del pulgar derecho seg?n se indica en el folleto adjunto. 4. Consulte a un m?dico privado el 26/08/2025 para haley nueva revisi?n. Pide ayuda para dejar el alcohol. Solicite revisar todos los resultados de las pruebas y los informes radiol?gicos oficiales, para asegurarse de recibir todos los seguimientos y monitoreos necesarios. 5. Busque atenci?n m?dica inmediata si tiene fiebre, enrojecimiento extendido de la herida del pulgar derecho o si tiene alguna inquietud. Print Language: Tajik Stand Alone Forms: Karissa Award Info., Patient Portal Info Letter Alcohol MDM Narrative MDM Narrative: Camila Ralph, am scribing for and in the presence of Dr. Matos. 1800: Patient signed out to Dr. Richard pending reassessment. Patient data External records reviewed:: [facility] previous records and EMS form Clinical information provided by:: patient and EMS Social determinants that could affect healthcare access:: alcohol use Patient has the following chronic illnesses:: Hypertension, diabetes How is presenting disease/condition affected by chronic disease/condition?: uneffected by Evaluation data The following diagnostics were reviewed and interpreted by me:: lab results, radiology exam(s) and EKG tracing(s) (EKG @ 14:45, interpreted by me, sinus rhythm, rate 94, right bundle branch block, left anterior fascicular block, no STEMI. ) Lab and/or radiology exams considered but not ordered:: None Interpretation Summary: Ordering Physician: Silas Matos MD Date of Service: 08/25/25 Procedure(s): XR chest 1V portable Accession Number(s): [id number] cc: Silas Matos MD; Carlos Michaud MD; Seun Horton MD~ EXAMINATION: AP chest single view TECHNIQUE: AP portable upright chest single view Date and time: August 25, 2025, 1514 hours, comparison December 10, 2022 INDICATIONS: Chest pain coughing shortness of breath today. FINDINGS: Early pneumonia right base obscuring detail right hemidiaphragm Mild prominence left ventricle Moderate osteopenia IMPRESSION: Early pneumonia right base Dictated By: Seun Horton MD Signed By: <Electronically signed by Seun Horton MD in OV> 08/25/25 1538 Medications / Prescriptions Medications or Prescriptions considered but not ordered:: None Medication administrations:: Medication Administration History Discontinued Medications Bacitracin (Bacitracin Oint 1 Gm Packet) 1 gm TOP X1 ONE Stop: 08/25/25 18:34 Last Admin: 08/25/25 18:43 Dose: 1 gm Documented By: BY Diphtheria/Tetanus/Acell Pertussis (Diphth,Pertuss(Acell),Tet Vac 0.5 Ml Syr- Adult) 0.5 ml IMi .ONCE ONE Stop: 08/25/25 18:34 Last Admin: 08/25/25 18:42 Dose: 0.5 ml Documented By: BY Folic Acid (Folic Acid 1 Mg Tablet) 1 mg PO X1 ONE Stop: 08/25/25 14:33 Last Admin: 08/25/25 14:45 Dose: 1 mg Documented By: BY Sodium Chloride (Ns) 1,000 mls @ 999 mls/hr IV .Q1H1M ONE Stop: 08/25/25 15:32 Last Infusion: 08/25/25 15:46 Dose: Infused Documented By: Admin: 08/25/25 14:45 Dose: 999 mls/hr Documented By: BY Sodium Chloride (Ns) 1,000 mls @ 999 mls/hr IV .Q1H1M ONE Stop: 08/25/25 18:57 Last Admin: 08/25/25 18:10 Dose: 999 mls/hr Documented By: BY Lorazepam (Lorazepam 0.5 Mg Tablet) 1 mg PO X1 ONE Stop: 08/25/25 14:36 Last Admin: 08/25/25 14:45 Dose: 1 mg Documented By: BY Thiamine HCl (Thiamine 100 Mg Tablet) 100 mg PO X1 ONE Stop: 08/25/25 14:33 Last Admin: 08/25/25 14:45 Dose: 100 mg Documented By: BY See above Consultations Consultation(s) initiated? (list below): No Diagnosis Most likely diagnosis given after review of the tests above:: Alcohol intoxication Admission Indicated Admission indicated?: not indicated Explain why admission is indicated or not indicated:: Pending final disposition. Admission Request Was there a request for admission?: No Disposition Plan Disposition Plan: other (specify) (Signed out to Dr. Richard )
[2025-08-25 15:13] LABS: Alanine Aminotransferase 72 U/L (10-49); Albumin, Serum 4.7 gm/dL (3.4-4.8); Albumin/Globulin Ratio 1.8 (1.2-2.2); Alcohol, Blood Medical 269.8 mg/dL (0-10.0); Alkaline Phosphatase 109 U/L (46-116); Anion Gap 13 (7-16); Aspartate Amino Transferase 57 U/L (0-34); BUN/Creatinine Ratio 16 Ratio (12-20); Bilirubin,Total 0.4 mg/dL (0.3-1.2); Blood Urea Nitrogen 14 mg/dL (9-23); Calcium 9.1 mg/dL (8.3-10.6); Calcium (Corrected) 9.1 mg/dL (8.5-10.1); Carbon Dioxide 23.7 mMol/L (20.0-31.0); Chloride 101 mMol/L (98-107); Creatinine (Component) 0.9 mg/dL (0.6-1.3); Estimated Creatinine Clearance 74.7 mL/min (>60); Globulin 2.6 gm/dL (2.3-3.5); Glucose 234 mg/dL (74-106); Osmolality,Calculated 284 (275-295); Potassium 4.2 mMol/L (3.4-5.1); Sodium 138 mMol/L (136-145); Total Protein 7.3 gm/dL (5.7-8.2); Troponin I < 0.020 ng/mL (0.0-0.045); eGFR > 60 See Note
--- NOTE | 2025-08-25 18:15 | PC.NURSE ---
BROTHER JUAN ALBERTO CALLED FOR DANCE THERAPIST TO GO HOME
--- NOTE | 2025-08-25 18:30 | PD.EDADDENDU ---
Emergency Room Addendum Addendum Narrative: I took over the care from previous shift physician at 6 PM on 08/25/2025. See previous notes for complete H & P and ED course. I reviewed all diagnostic test results. My interpretation of the EKG is My interpretation of the chest x-ray is early pneumonia right base. My review of the CT report is Blood tests and urine tests Covid/Influenza: Diagnoses include: Treatment here included Folic Acid 1 mg Ativan 1 mg IVF 1 L Vitamin B-1 100 mg Not yet done: I discussed the case with our hospitalist. About the presentation and exam and diagnostics and treatments here. And need of further care in the hospital. Will accept the patient. Not yet done: Based on my best medical judgment, made decision no further evaluation or treatment indicated at this time. Patient understands and agrees to the discharge instructions customized and printed, see below. Tad Richard MD
[2025-08-25] MEDS: DIPHTH,PERTUSS(ACELL),TET VAC 0.5 ML SYR- ADULT IMi (18:42)
[2025-08-25] MEDS: BACITRACIN OINT 1 GM PACKET TOP (18:43)
--- NOTE | 2025-08-25 19:42 | EDNOTE_ITS ---
Emergency Room Addendum Addendum Narrative: I took over the care from previous shift physician, Dr. Matos, at _1800_ on _08/25/25_.? See previous notes for complete H & P and ED course.?? I reviewed all diagnostic test results. Diagnoses include: Alcohol intoxication Right thumb skin abrasion Treatment here included: IVF Wound care Brother is here to take him home. Based on my best medical judgment, made decision no further evaluation or treatment indicated at this time.? Patient understands and agrees to the discharge instructions customized and printed, see below. Discharge Instructions from Dr. Richard printed for you: 1. After evaluation, your diagnoses include alcohol intoxication and right thum b skin abrasion. 2. To avoid serious illnesses and injuries (some even fatal), avoid alcohol in the future. 3. Wound care of right thumb skin abrasion as instructed in the attached handout. 4. See a private doctor on 08/26/2025 for recheck. Ask for help to quit alcohol. Ask to review all test results and official radiology reports, to make sure you receive all necessary follow-ups and monitoring. 5. Seek immediate medical care with fever, spreading redness from the right thumb wound, or with any concerns. Instrucciones de denise del Dr. Richard impresas para usted: 1. Despu?s de la evaluaci?n, raul diagn?sticos incluyen intoxicaci?n por alcohol y abrasi?n de la piel del pulgar derecho. 2. Para evitar enfermedades y lesiones graves (algunas incluso mortales), evite el alcohol en el futuro. 3. Cuidado de la herida por abrasi?n de la piel del pulgar derecho seg?n se indica en el folleto adjunto. 4. Consulte a un m?dico privado el 26/08/2025 para haley nueva revisi?n. Pide ayuda para dejar el alcohol. Solicite revisar todos los resultados de las pruebas y los informes radiol?gicos oficiales, para asegurarse de recibir todos los seguimientos y monitoreos necesarios. 5. Busque atenci?n m?dica inmediata si tiene fiebre, enrojecimiento extendido de la herida del pulgar derecho o si tiene alguna inquietud. Tad Richard MD
== END 2025-08-25 19:12 | disposition home or self-care (01) ==
PROVIDERS: Family Medicine; Emergency Provider Emergency Medicine; PCP Family Medicine
DX: F10.129 Alcohol abuse with intoxication, unspecified (principal); J18.9 Pneumonia, unspecified organism; S00.31XA Abrasion of nose, initial encounter; S60.311A Abrasion of right thumb, initial encounter; Y90.9 Presence of alcohol in blood, level not specified
CPT/HCPCS: 36415; 71045; 80053; 80320; 81001; 84484; 85025; 85610; 85730; 90471; 90715; 93005; 99284; J7030; A9270; G0480